=== PATIENT | female | born 1985 | race Caucasian/White ===

== ENCOUNTER 2017-02-01 10:09 | Emergency (ER) | payer BC ==
--- OUTSIDE RECORDS SUMMARY | 2017-02-01 11:02 | XMS REPORT | Continuity of Care Document ---
:1985 Author Organization [facility] ([facility]) Address [address] [place] [address] Phone [phone] Care Team Providers Name Role Phone Bibiana Prince Primary Care Provider [phone] Source Comments This disclosure is being made pursuant to the Care Everywhere program, applicable federal and state laws, and may not contain all informaitonavailable regarding this patient.[facility] ([facility]) Active Allergies and Adverse Reactions Allergen Noted Date Severity Reactions Comments Amoxicillin-Pot Clavulanate 10/14/2012 OTHER Yeast infection Current Medications Prescription Sig. Disp. Refills Start Date End Date Status PARoxetine (PAXIL) 10 take 10 mg by mouth Active mg tablet daily. Terazosin 1 mg Tab 1-2 tablets at 45 Tab 11 10/19/2012 Active bedtime Indications: incomplete bladder emptying solifenacin (VESICARE) Take 1 Tab by mouth 30 Tab 11 01/05/2013 Active 10 mg tablet daily. Indications: URINARY URGENCY Active Problems Problem Noted Date Urgency of urination 01/05/2013 Incomplete bladder emptying 10/26/2012 Anxiety 10/26/2012 Resolved Problems Problem Noted Date Resolved Date Unspecified antepartum hemorrhage, antepartum 03/16/2007 01/07/2010 Threatened premature labor, antepartum 01/05/2007 01/07/2010 Unspecified complication of , antepartum 12/22/2006 01/07/2010 Social History Tobacco Use Types Packs/Day Years Used Date Former Smoker 15 Quit: 01/07/2010 Smokeless Tobacco: Never Used Tobacco Cessation:Counseling Given: Yes Comments: Alcohol Use Drinks/Week oz/Week Comments Yes 6 Cans of beer 3.0 Last Filed Vital Signs Vital Sign Reading Time Taken Blood Pressure 116/79 01/05/2013 4:35 PM CDT Pulse 84 01/05/2013 4:35 PM CDT Temperature 36.4 C (97.6 F) 01/05/2013 4:35 PM CDT Respiratory Rate 16 11/16/2012 2:22 PM [employer]PH[employer] Height 1.651 m (5' 5") 11/16/2012 2:22 PM [employer]PH[employer] Weight 71.487 kg (157 lb 9.6 oz) 11/16/2012 2:22 PM [employer]PH[employer] Body Mass Index 26.23 11/16/2012 2:22 PM [employer]PH[employer] Oxygen Saturation 98% 11/16/2012 2:22 PM [employer]PHOLSTERY IN[employer]CTOR Plan of Care Health Maintenance Due Date Last Done Comments Hepatitis B Vaccine (1 of 3 - Primary Series) 1985 Tdap Vaccine 02/15/1995 Lipid Disorder Screening 02/15/2002 MMR Vaccine 02/15/2002 Td Vaccine 02/15/2002 Varicella Vaccine (1 of 2 - Adult - No Evidence of 02/15/2002 Immunity) Cervical Cancer Screening 02/15/2014 Influenza Vaccine: Seasonal (#1) 05/04/2016 Results from Last 3 Months Not on file
[2017-02-01] MEDS ORDERED: KETOROLAC TROMETHAMINE 60 MG/2 ML VIAL IM ONE ×2 (11:05→11:07)
[2017-02-01 11:20] LABS: Hematocrit 34.5 % (37.0-47.0); Hemoglobin 11.3 gm/dL (12.5-16.0); Mean Cell Volume 87.6 fl (78-100); Mean Corpuscular Hemoglobin 28.7 pg (27-31); Mean Corpuscular Hgb Conc 32.8 g/dl (32-36); Mean Platelet Volume 9.6 fl (6.0-9.5); Neutrophil # 3.1 K/mm3 (1.3-6.0); Platelet Count 297 K/mm3 (150-450); Red Blood Count 3.94 M/mm3 (4.2-5.4); Red Cell Distribution Width 13.9 % (11.5-14.0); White Blood Count 5.5 K/mm3 (4.0-10.5)
[2017-02-01 11:35] LABS: Albumin * 3.9 gm/dl (3.4-5.0); Anion Gap 12.5 mmol/L (6.8-13.8); BUN/Creatinine Ratio 14.9 (9.0-21.6); Bilirubin, Total 0.3 mg/dL (0.0-1.1); Ca. Corrected For Albumin 8.7 mg/dL (8.4-10.2); Calcium * 8.9 mg/dL (7.9-10.9); Carbon Dioxide 29.5 mmol/L (24-32.6); Total Protein 7.6 gm/dL (6.2-8.2)
[2017-02-01 12:06] VITALS: BP 128/78
--- NOTE | 2017-02-01 12:52 | ERNOTE ---
Lower Extremity HPI - Narrative Date of Service: 02/01/17 - General Lower Extremities Pain: leg: bilateral - starts below knees to ankles Time Seen by Provider: 02/01/17 10:50 Source: patient, RN notes reviewed Exam Limitations: no limitations - Immun/Allergies/Home Medications Immunizations: IMMUNIZATION HX Immunizations Up to Date Yes History of Influenza Vaccine Yes Hx Pneumococcal Vaccination Yes Allergies/Adverse Reactions: Allergies Allergy/AdvReac Type Severity Reaction Status Date / Time amoxicillin AdvReac Verified 02/01/17 10:24 Home Medications: HOME MEDICATIONS Citalopram Hydrobromide [Celexa] 5 mg PO DAILY 07/22/14 [Last Taken Unknown] Omeprazole [Prilosec] 20 mg PO DAILY 07/22/14 [Last Taken Unknown] Cyclobenzaprine HCl [Flexeril] 10 mg PO DAILY PRN #20 tab 02/01/17 [Last Taken Unknown] Ibuprofen [Motrin] 600 mg PO Q6H PRN #40 tab 02/01/17 [Last Taken Unknown] - Pain Score Pain Score #1 Pain Score: 7 - History of Present Illness Narrative: 31 y/o female ambulatory to the ED for bilateral lower leg pain that began without incident 4 days ago. She denies any injury. Both lower legs are painful from below the knees to the ankles. She is concerned that she has a circulation problem. She smokes a half a pack a day or less since she was 13. She has not had any issue with her legs in the past. She has been taking Aleve and Tylenol without any improvement. The pain does not change with rest or activity. She works as a bank guard. Date (Duration): 01/28/17 Occurred: last week Method of Injury: Reports: no apparent injury Modifying Factors - (Improves): Denies: movement, pain medication, rest Modifying Factors - (Worsens): Denies: movement, rest Subsequent Symptoms: Denies: sensory loss, numbness, motor loss, bowel/bladder problem Prior Treament: Denies: recently seen, similar symptoms before Review of Systems - Review of Systems Constitutional: Absent: recent illness, fever, malaise EYE: Present: no symptoms reported ENT: Present: no symptoms reported Respiratory: Absent: shortness of breath, cough Cardiology: Absent: chest pain, palpitations, syncope, edema, claudication Gastrointestinal/Abdominal: Absent: nausea, diarrhea, abdominal pain Genitourinary: Present: no symptoms reported Musculoskeletal: Absent: back pain, joint pain, joint swelling Skin: Absent: rash, lesions, lumps, change in color, change in hair/nails Neurological: Absent: headache, dizziness/light-headedness, weakness, numbness, tingling Endocrine: Absent: intolerance to cold, unexplained weight gain Hematologic/Lymphatic: Present: no symptoms reported Psych: Present: no symptoms reported - Patient's Past Medical History Patient History - Medical: Anemia, Anxiety, Depression Patient History - Cardiac/Respiratory: No pertinent hx Patient History - Cancer: No Hx of Cancer Patient History - Surgical Procedures: Cholecystectomy, Colonoscopy, , EGD, Tubal Ligation, T & A Patient History - Other: None LMP (females 10-50): now - Social History Living Situations: spouse Abuse History: No History of abuse Psych History: Hx of Anxiety Smoking Status: Current every day smoker Cigarettes Packs Per Day: 0.5 Alcohol Use: occasionally Drug Use: none - Immunizations Immunizations Up to Date: Yes Hx Pneumococcal Vaccination: Yes History of Influenza Vaccine: Yes Physical Exam - Physical Exam General Appearance: Present: wd/wn, alert, no apparent distress Neck: Present: normal inspection, nontender, supple, full range of motion Respiratory: Present: no respiratory distress, normal breath sounds, no accessory muscle use, lungs clear Cardiovascular/Chest: Present: regular rate, rhythm, no murmur, normal peripheral pulses Peripheral Pulses: N=norm/S=strong/W=weak/B=bound/A=absent: Dorsalis-pedis (R): Strong, Dorsalis-pedis (L): Strong Back Exam: Present: normal inspection, normal range of motion, no vertebral tenderness Extremity Exam: Present: normal inspection, non-tender - , normal range of motion, no edema. Absent: pedal edema, joint redness, joint swelling Neurological Exam: Present: alert, oriented, normal mood/affect, no motor/ sensory deficits Skin Exam: Present: normal color, warm/dry ED Progress - Results and Orders Patient's Lab Results:: I have reviewed the patient's lab results. - Vital Signs Patient's Vital Signs:: I have reviewed the patient's vital signs. Vital Signs: Vital Signs 02/01/17 02/01/17 10:16 12:05 Temperature 37.1 C 37.1 C Pulse Rate 69 64 Respiratory 16 16 Rate Blood Pressure 131/83 128/78 O2 Sat by Pulse 98 98 Oximetry - Progress/Reassessment Chief Complaint: Lower Extremity Pain/ Injury Progress:: Improved Departure Clinical Impression: Leg pain, bilateral - Departure Disposition: Home Follow Up Needed Condition: Stable Instructions: Muscle Pain, Adult, Form - Excuse from Work, School, or Physical Activity Additional Instructions: Take ibuprofen routinely for a few days Try muscle relaxant at bedtime Wearing compression socks may help Heat to sore areas as needed Referrals: Sola Saxena DO [Primary Care Provider] - Prescriptions: Cyclobenzaprine HCl [Flexeril] 10 mg PO DAILY PRN #20 tab PRN Reason: MUSCLE SPASMS Ibuprofen [Motrin] 600 mg PO Q6H PRN #40 tab PRN Reason: Pain
== END 2017-02-01 12:05 | disposition home or self-care (01) ==
LOC: ER 10:09
DX: M79.662 Pain in left lower leg (principal); M79.661 Pain in right lower leg; F17.210 Nicotine dependence, cigarettes, uncomplicated; F32.9 Major depressive disorder, single episode, unspecified